=== PATIENT | female | born 1980 | race Caucasian/White ===

== ENCOUNTER → 2018-01-15 | Outpatient (CLI) | payer OTHER ==
[~2018-01-15] MED LIST: CIPROFLOXACIN500 MG PO; DEPO PROVER150 MG/M1 IM; DEPOPROVERA; FLEXERIL10 MG PO; MACROBID100 M1 PO; NAPROSYN500 MG PO; OMEPRAZOLE20 MG PO; ULTRAM50 MG PO
[2018-01-15 15:05] LABS: URINE AMPHETAMINES < 1000 (1000ng/ml); URINE BARBITURATES < 200 (200ng/ml); URINE BENZODIAZEPINES < 200 (200ng/ml); URINE CANNABINOIDS (THC) < 50 (50ng/ml); URINE COCAINE < 300 (300ng/ml); URINE METHADONE < 300 (300ng/ml); URINE OPIATES < 300 (300ng/ml)
[2018-01-15 15:08] LABS: URINE PHENCYCLIDINE < 25 (25ng/ml)
== END | disposition home or self-care (01) ==
LOC: LAB 14:17
PROVIDERS: Internal Medicine
DX: F11.20 Opioid dependence, uncomplicated (principal)

== ENCOUNTER 2018-07-28 11:46 | Emergency (ER) | payer OTHER ==
[~2018-07-28] VITALS: Ht 165.1 cm; Wt 63.5 kg
[2018-07-28 12:31] LABS: BILIRUBIN NEGATIVE (NEGATIVE); BLOOD 2+ (NEGATIVE); CLARITY SL CLOUDY (CLEAR); COLOR YELLOW (YELLOW); GLUCOSE NEGATIVE (NEGATIVE); KETONE NEGATIVE (NEGATIVE); LEUKO ESTERASE NEGATIVE (NEGATIVE); NITRITE NEGATIVE (NEGATIVE); PH 5.5 (5.0-9.0); SPECIFIC GRAVITY >= 1.030 (1.005-1.030); UROBILINOGEN 0.2 E.U./dl (0.2-1.0)
[2018-07-28 12:38] LABS: BACTERIA 1+; EPITHELIAL CELLS 21-30; MUCOUS 1+
[2018-07-28 12:44] LABS: BASO # 0.1 10*3/uL (0.0-0.1); BASO % 0.6 % (0.0-1.0); EOS # 0.9 10*3/uL (0.0-0.4); EOS % 7.9 % (1.0-4.0); HEMATOCRIT 39.8 % (37.0-47.0); HEMOGLOBIN 13.4 g/dl (12.0-16.0); LYMPH # 3.5 10*3/uL (1.3-4.4); LYMPH % 32.1 % (27.0-41.0); MEAN CELL VOLUME 88.2 fl (81.0-99.0); MEAN CORPUSCULAR HGB 29.7 pg (27.0-31.0); MEAN CORPUSCULAR HGB CONC 33.7 g/dl (33.0-37.0); MEAN PLATELET VOLUME 8.8 fl (9.6-12.3); MONO # 0.6 10*3/uL (0.1-1.0); MONO % 5.6 % (3.0-9.0); NEUT # 5.9 10*3/uL (2.3-7.9); NEUT % 53.3 % (47.0-73.0); PLATELET COUNT AUTOMATED 318 10*3/uL (130-400); RED BLOOD COUNT 4.51 10*6/uL (4.10-5.10); RED CELL DISTRI WIDTH 13.1 % (0-14.5)
[2018-07-28 13:01] LABS: ALBUMIN 3.3 gm/dl (3.1-4.5); ALKALINE PHOSPHATASE 81 U/L (45-117); BUN 7 mg/dl (7-24); CHLORIDE 109 mmol/L (98-107); CREATININE 0.44 mg/dL (0.55-1.02); SGOT/AST 8 IU/L (3-35); SGPT/ALT 14 U/L (12-78); SODIUM 139 mmol/L (136-145); TOTAL PROTEIN 6.7 gm/dL (6.4-8.2)
[2018-07-28] MEDS ORDERED: PREDNISONE20 M1 PO (15:23)
[2018-07-28] MEDS ORDERED: ZITHROMAX250 MG PO (15:23)
[2018-07-28] MEDS ORDERED: ALBUTEROL2.5 MG/0.5 INH (15:36)
== END 2018-07-28 15:58 | disposition home or self-care (01) ==
LOC: ED 11:46
PROVIDERS: Nurse Practitioner
DX: R91.8 Other nonspecific abnormal finding of lung field (principal); M54.5 Low back pain; Z98.51 Tubal ligation status

== ENCOUNTER → 2018-12-16 | Outpatient (CLI) | payer OTHER ==
[~2018-12-16] MED LIST changes: +ALBUTEROL2.5 MG/0.5 INH; +PREDNISONE20 M1 PO; +ZITHROMAX250 MG PO
[2018-12-16 14:01] LABS: URINE AMPHETAMINES < 1000 (1000ng/ml); URINE BARBITURATES < 200 (200ng/ml); URINE BENZODIAZEPINES < 200 (200ng/ml); URINE CANNABINOIDS (THC) < 50 (50ng/ml); URINE COCAINE < 300 (300ng/ml); URINE METHADONE < 300 (300ng/ml); URINE OPIATES < 300 (300ng/ml); URINE PHENCYCLIDINE < 25 (25ng/ml)
== END | disposition home or self-care (01) ==
LOC: LAB 13:34
PROVIDERS: Internal Medicine
DX: F11.20 Opioid dependence, uncomplicated (principal)

== ENCOUNTER 2020-09-15 15:53 | Emergency (ER) | payer OTHER ==
[~2020-09-15] VITALS: Wt 59.0 kg
== END 2020-09-15 19:30 | disposition left against medical advice (07) ==
LOC: ED 15:53
DX: S99.911A Unspecified injury of right ankle, initial encounter (principal); Z53.21 Procedure and treatment not carried out due to patient leaving prior to being seen by health care provider; X58.XXXA Exposure to other specified factors, initial encounter; Y93.89 Activity, other specified; Y92.89 Other specified places as the place of occurrence of the external cause; Y99.8 Other external cause status

== ENCOUNTER 2021-04-21 20:41 | Emergency (ER) | payer OTHER ==
[~2021-04-21] VITALS: Wt 63.5 kg
[2021-04-21] MEDS ORDERED: Motrin,Rufen800 MG PO (22:22)
[2021-04-21] MEDS ORDERED: CYCLOBENZAPRINE5 M3 PO (22:22)
== END 2021-04-21 22:25 | disposition home or self-care (01) ==
LOC: ED 20:41
DX: M54.16 Radiculopathy, lumbar region (principal)